=== PATIENT | female | born 1995 | race Caucasian/White ===

== ENCOUNTER 2022-01-31 08:15 | Inpatient (IN) | payer BC, SELFPAY ==
[2022-01-31] VITALS (44 sets, daily range): BP systolic 98–131; BP diastolic 55–87; PULSE 82–190; TEMP 36–36.6; O2SAT 81–100; BMI 29.9
[2022-01-31] MEDS: Lactated Ringers 1,000 ML 50 ML IV (09:00)
[2022-01-31] MEDS: 0.9% Normal Saline Single 100 ML IV.SOLN. INTRA-UTER (09:25)
[2022-01-31 09:45] LABS: Absolute Lymphocyte Count 1.22 X10^3/uL (0.83-4.51); Absolute Neutrophil Count 6.8 X10^3/uL (2.0-7.7); Basophil# 0.03 X10^3/uL; Basophil% 0.3 % (0-1); Eosinophil# 0.05 X10^3/uL; Eosinophils% 0.6 % (0-5); Hematocrit 39.3 % (37-47); Hemoglobin 13.7 g/dL (12.0-15.0); Lymphocyte # 1.22 X10^3/ul (0.83-4.51); Lymphocyte % 13.8 % (19-41); Mean Corp Hgb Conc 34.9 g/dL (32-36); Mean Corpuscular Hgb 29.7 pg (27.0-32.0); Mean Corpuscular Volume 85.1 fL (81-99); Mean Platelet Vol. 12.3 fl (6.2-12.0); Monocyte# 0.68 X10^3/uL; Monocyte% 7.7 % (0-10); Mucous, Urine 0 SEEN /hpf (<or=2+); NRBC Flagged by Analyzer 0 % (0-5); Neutrophil # 6.77 X10^3/uL (2.7-7.7); Neutrophil % 76.9 % (47-70); Platelet Count 141 K/mm3 (150-450); RBC Distribution Width CV 13.6 % (11.6-14.6); RBC Distribution Width SD 42.6 fl (35.1-43.9); Red Blood Cells-Urine 0 SEEN /hpf (0-5); Red Blood Count 4.62 M/mm3 (4.2-5.4); White Blood Cells 0 SEEN /hpf (0-5); White Blood Count 8.8 K/mm3 (4.4-11.0)
[2022-01-31 09:47] LABS: Color, Urine Yellow (Yellow); Glucose, Dipstick Normal (Normal); Ketone-Dipstick 5 mg/dl (Negative); Leukocyte Esterase-Dipstick Negative /ul (Negative); Nitrite-Dipstick Negative (Negative); Occult Blood-Urine Negative /ul (Negative); Protein-Dipstick Negative (Negative); Urine Bilirubin Dipstick Negative (Negative); Urine Clarity Sl. Cloudy (Clear); Urine Urobilinogen Normal (Normal); Urine pH 6.5 (5.0 - 8.0)
[2022-01-31] MEDS: Oxytocin 30 units/NS 500 ml 30 UNITS/500 ML IV.SOLN IV (09:52)
[2022-01-31 09:54] LABS: Bacteria 1+ /hpf (None Seen); Squamous Epithelial Cells - UA 0-5 SEEN /hpf (5-10)
[2022-01-31 09:58] LABS: Amphetamine Urine VISTA NEGATIVE (<1000 ng/mL); Barbiturate Urine VISTA NEGATIVE (< 200 ng/mL); Benzodiazepine Urine VISTA NEGATIVE (< 200 ng/mL); Cocaine Urine VISTA NEGATIVE (< 300 ng/mL); Ecstacy Urine VISTA NEGATIVE (< 500 ng/mL); Methadone Urine VISTA NEGATIVE (< 300 ng/mL); PCP Urine VISTA NEGATIVE (< 25 ng/mL); THC Urine VISTA NEGATIVE (< 50 ng/mL); Vista UDS pH Range 6
--- NOTE | 2022-01-31 11:22 | NURSING ---
Patient is a transfer of care from relay shop tester, Angelita Ordonez. Patient had been seen at [facility], [facility]. in [place] until 20 weeks. Faxed the office to obtain bloodwork for patient's records.
[2022-01-31 11:51] LABS: Group B Strep DNA By PCR Negative (Negative); Internal Control PASS; Probe Check PASS; Specimen Processing Control PASS
[2022-01-31] MEDS: Lactated Ringers 500 ML 999 ML IV ×3 (18:48→22:50)
[2022-01-31] MEDS: fentaNYL-bupivacaine (epidural) 100 ML BAG EPIDURAL (20:05)
[2022-01-31] MEDS: Lactated Ringers 1,000 ML 200 ML IV (21:18)
--- NOTE | 2022-01-31 21:23 | PCM.HP.OB ---
HPI - General General Date of Admission: 01/31/22 HPI Narrative MANDY HUMPHRIES, is a 26 F who presents For induction of labor secondary to postdates. She has been receiving care by patrol community service officer Angelita Ordonez and has had no complications except now she is 41 weeks and 3 days with no ongoing active labor Maternal Data Information DAISHA Calculator Estimated Delivery Date Method Current WG Current Estimate 01/21/22 Manual 41w 3d PFSH PFSH Medical History (Updated 01/31/22 @ 21:[address] Marilyn Louie MD) Anxiety Depression Medical History no medical history Home Medications Prenatabs FA 1 tab PO/SL DAILY 01/31/22 [History Last Taken 01/29/22] magnesium 1 tab PO/SL DAILY 01/31/22 [History Last Taken 01/29/22] Allergy/AdvReac Type Severity Reaction Status Date / Time No Known Allergies Allergy Verified 01/31/22 08:50 Family History no significant family his Surgical History (Updated 01/31/22 @ 09:47 by Gracia Jeffries) [place] teeth extracted Social History Smoking Status: Never smoker History Elective abortions Hx Para 0 Spontaneous abortions Hx # Term Pregnancies Ectopic pregnancies Hx # Pregnancies Multiple births # of living children NST FHR Rate Baby A Baseline: 130 Variability:: Moderate Accelerations:: 15 x 15 Decelerations:: None NST Reactive:: Yes FHR Category:: Category I Uterine Activity:: irregular ROS Constitutional Constitutional: Reports systems reviewed and no addt'l complaints, except as documented Eyes Eyes: Denies change in vision ENT HEENT: Reports systems reviewed and no addt'l complaints, except as documented; Denies headache(s) Cardiovascular Cardiovascular: Reports systems reviewed and no addt'l complaints, except as documented; Denies chest pain or dyspnea Respiratory/Chest Respiratory/Chest: Reports systems reviewed and no addt'l complaints, except as documented Gastrointestinal Gastrointestinal: Reports systems reviewed and no addt'l complaints, except as documented; Denies abdominal pain Genitourinary Genitourinary: Reports systems reviewed and no addt'l complaints, except as documented, contractions Details: present (irregular) and movement Details: present; Denies dysuria or genital lesions Musculoskeletal Musculoskeletal: Reports systems reviewed and no addt'l complaints, except as documented Neurologic Neurologic: Reports systems reviewed and no addt'l complaints, except as documented Endocrine Endocrinology: Reports systems reviewed and no addt'l complaints, except as documented Vital Signs Vital Signs Vital Signs: 01/31/22 08:36 01/31/22 09:59 01/31/22 10:00 Temperature 97.3 F L 97.9 F Temperature Source Temporal Temporal Pulse Rate 101 H 100 98 Blood Pressure 124/82 H 131/82 H BP Systolic 124 131 BP Diastolic 82 82 Pulse Ox 97 01/31/22 11:13 01/31/22 11:14 01/31/22 11:55 Temperature 97.2 F L 96.9 F L Temperature Source Temporal Temporal Pulse Rate 96 96 Blood Pressure 123/72 H 121/77 H BP Systolic 123 121 BP Diastolic 72 77 Pulse Ox 97 98 100 01/31/22 13:56 01/31/22 14:56 01/31/22 14:57 Temperature 96.8 F L Temperature Source Temporal Pulse Rate 94 94 Blood Pressure 113/67 118/75 BP Systolic 113 118 BP Diastolic 67 75 Pulse Ox 100 99 01/31/22 14:58 01/31/22 16:04 01/31/22 16:05 Temperature 97.6 F L Temperature Source Temporal Pulse Rate 106 H 90 Blood Pressure 117/76 BP Systolic 117 BP Diastolic 76 Pulse Ox 97 01/31/22 17:45 01/31/22 18:58 01/31/22 19:18 Temperature 97.2 F L Temperature Source Temporal Pulse Rate 86 91 97 Blood Pressure 123/87 H 124/75 H BP Systolic 123 124 BP Diastolic 87 75 Pulse Ox 98 95 98 01/31/22 19:29 01/31/22 19:30 01/31/22 19:35 Temperature Temperature Source Pulse Rate 93 91 90 Blood Pressure 110/61 BP Systolic 110 BP Diastolic 61 Pulse Ox 97 98 01/31/22 19:40 01/31/22 19:45 01/31/22 19:47 Temperature Temperature Source Pulse Rate 97 97 92 Blood Pressure BP Systolic BP Diastolic Pulse Ox 97 98 93 01/31/22 19:50 01/31/22 19:55 01/31/22 19:56 Temperature Temperature Source Pulse Rate 107 H 96 93 Blood Pressure 129/73 H 122/75 H BP Systolic 129 122 BP Diastolic 73 75 Pulse Ox 99 99 01/31/22 20:01 01/31/22 20:04 01/31/22 20:06 Temperature Temperature Source Pulse Rate 96 96 94 Blood Pressure 116/66 116/68 BP Systolic 116 116 BP Diastolic 66 68 Pulse Ox 95 01/31/22 20:09 01/31/22 20:11 01/31/22 20:14 Temperature Temperature Source Pulse Rate 90 90 90 Blood Pressure 118/62 BP Systolic 118 BP Diastolic 62 Pulse Ox 96 98 01/31/22 20:16 01/31/22 20:19 01/31/22 20:22 Temperature Temperature Source Pulse Rate 87 89 86 Blood Pressure 119/70 125/65 H BP Systolic 119 125 BP Diastolic 70 65 Pulse Ox 98 01/31/22 20:24 01/31/22 20:25 01/31/22 20:29 Temperature Temperature Source Pulse Rate 85 85 Blood Pressure 120/64 BP Systolic 120 BP Diastolic 64 Pulse Ox 97 96 01/31/22 20:31 01/31/22 20:44 01/31/22 20:52 Temperature Temperature Source Pulse Rate 88 82 96 Blood Pressure 113/65 111/72 BP Systolic 113 111 BP Diastolic 65 72 Pulse Ox 100 01/31/22 20:54 01/31/22 20:57 01/31/22 21:04 Temperature Temperature Source Pulse Rate 104 H 91 95 Blood Pressure 110/71 111/65 BP Systolic 110 111 BP Diastolic 71 65 Pulse Ox 100 Weight Weight: 202 lb 6 oz Body Mass Index (BMI) 29.9 Physical Exam Const alert, oriented x3, no apparent distress and healthy appearing HEENT normocephalic and moist oral mucous membranes Head and Scalp: atraumatic Neck full ROM, no lymphadenopathy, supple and thyroid normal General: trachea midline Lymph Lymphatic: no lymphadenopathy noted Chest inspection of chest normal Resp normal respiratory effort Cardio regular rate GI normal to inspection, nondistended, normoactive bowel sounds, soft to palpation and non-tender Inspection: gravid external exam normal Manual OB Exam: estimated gestational size appropriate, presentation cephalic, dilated, effaced and station Extremity normal to inspection General Extremity: Negative for edema Skin no rashes or lesions noted Neuro no focal motor deficits and deep tendon reflexes 2+ bilaterally Motor Exam: strength 5/5 throughout and clonus absent Psych mental status grossly normal Labs Labs Labs: Blood Type O POSITIVE Antibody Screen NEGATIVE Hct 39.3 % (37-47) Hgb 13.7 g/dL (12.0-15.0) Group B Strep DNA Negative (Negative) Assessment & Plan (1) Encounter for induction of labor: (2) Post-term , 40-42 weeks of gestation: PLAN: Pitocin and [place] bulb induction of labor, epidural if desired. AROM when able.
--- NOTE | 2022-01-31 21:37 | PN_ITS ---
Progress Note Status post epidural, patient comfortable. Direct OP and with gentle manipulation converted to MATTHEW. Tracing now heart tones 130 minimal to mo derate variability category 2 tracing but overall reassuring early decelerations. Pitocin initially turned off for prolonged deceleration but will restart Pitocin per protocol when appropriate
[2022-02-01] VITALS (24 sets, daily range): BP systolic 106–138; BP diastolic 56–87; PULSE 84–111; RESP 16; TEMP 36.1–36.9; O2SAT 98–99
--- NOTE | 2022-02-01 01:03 | OP.PCM_ITS ---
Assessment & Plan (1) Vaginal delivery: COMMENT: 41 iol postdates fracisco morrison patient SM girl (2) Post-term , 40-42 weeks of gestation: Maternal Data Information DAISHA Calculator Estimated Delivery Date Method Current WG Current Estimate 01/21/22 Manual 41w 4d Vaginal Delivery Operative Information Date of Procedure: 02/01/22 Pre-Operative Diagnosis: IOL Post-Operative Diagnosis: same Surgery / Procedure Performed: Spontaneous Vaginal Delivery Type of Anesthesia: Epidural Special Medications: none Estimated Blood Loss: 100 Fluids Replaced: crystalloid Findings Description of Procedure: Patient began pushing and delivered the head in the MATTHEW presentation. The head was delivered atraumatically . The anterior and posterior shoulders delivered without complication followed by the rest of the infant and the was placed on the maternal abdomen. Delayed cord clamping was employed for approximately 60 seconds. Cord was clamped and cut and gentle traction was applied to the cord and the placenta delivered spontaneously immediately following it was noted to be intact with three-vessel cord. The perineum and vagina were inspected and noted to have no laceration. EBL was 100 cc. Patient and tolerated delivery well. Presentation: MATTHEW Amniotic Membrane Rupture Type: Artificial Amniotic Fluid Description: Clear Placental Delivery Description: Spontaneous Placenta Disposition: [facility] Cord Vessel Description: 3 Vessels Cord Entanglement: None Delayed Cord Clamping: Yes Post Vaginal Delivery Medications Given After Delivery: IV Pitocin Episiotomy Description: None Laceration: None Complication Complications: None Procedures Urinary/Genital [id number]: [id number] Vaginal Delivery+ Care([facility])
--- NOTE | 2022-02-01 01:04 | PCM.DC ---
Discharge Instructions Diet Discharge Diet: No restrictions Activity Discharge Activity: Return to Normal Activity, May Not Drive (while taking narcotic pain medications.) and May Shower May resume sexual activity in: 4-6 weeks Dressing / Incision Call your doctor if your incision/area has: Continuous Slow Oozing, Sudden Increased Bleeding, Increased Pain/ Swelling, Increased Redness and Foul Smelling Discharge Follow Up Care Please Follow Up With: Marilyn Louie MD When: Call [phone] to make an appointment with your doctor in 6 weeks. If you had elevated blood pressure or 4th degree laceration, you will need to be seen in 2 weeks. Test Results: Test results from this visit will be discussed in further detail at your follow-up appointment, if applicable. Discharge Plan Admission Admit Date/Time: 01/31/22 08:15 Attending Provider: Marilyn Louie Primary Care Provider: Care ,Luciana Primary Discharge Orders/Prescriptions Prescriptions: No Action Prenatabs FA 1 tab PO/SL DAILY RF: 0 magnesium 1 tab PO/SL DAILY RF: 0 Referrals / Follow Up: Care Physician,Luciana Primary [Primary Care Provider] - Disposition Disposition (needs filled in before D/C Order can be placed): Home, Self Care
[2022-02-01] MEDS: Oxytocin 30 units/NS 500 ml 30 UNITS/500 ML IV.SOLN 334 UNITS IV (02:15)
[2022-02-01] MEDS: 0.9% Saline Lock 10 ML Syringe IV (05:15)
[2022-02-01] MEDS: Naproxen 500 MG Tablet PO (06:47)
--- NOTE | 2022-02-01 11:38 | NURSING ---
Dr. Chou notified of BS of 97. States that we can stop BS at this time unless indicated.
[2022-02-01] MEDS: Acetaminophen 500 MG Tablet 1000 MG PO (19:58)
[2022-02-02 03:23] VITALS: BP 112/68; PULSE 86
[2022-02-02 03:25] VITALS: BP 112/68; PULSE 86; RESP 16; TEMP 37.1
--- NOTE | 2022-02-02 07:29 | PCM.PN.OB ---
Subjective Subjective Patient doing well without complaints. Tolerating PO. Ambulating and voiding without difficulty. feeding well. Denies chest pain, shortness of breath, calf pain/swelling, fevers, chills, lightheadedness. Objective Data Objective Data Vital Signs: Vital Signs Temp Pulse Resp BP Pulse Ox 98.8 F 86 16 112/68 98 02/02/22 03:25 02/02/22 03:25 02/02/22 03:25 02/02/22 03:25 02/01/22 01:09 Oxygen Delivery Method Room Air Weight: 202 lb 6 oz Body Mass Index (BMI) 29.9 Intake & Output: Intake and Output for Last 24 Hours 01/31/22 02/01/22 02/03/22 23:59 23:59 00:59 Intake Total 3278.90 / 3278.90 1193.33 / 1193.33 1000 / 1000 Output Total 1400 / 1400 1000 / 1000 Balance 1878.90 / 1878.90 193.33 / 193.33 1000 / 1000 Lab / Micro Data Result Diagrams: 01/31/22 09:30 Micro: Microbiology 01/31/22 09:30 Nasal Secretion SARS-CoV-2 Antigen (Rapid) - Final ROS Constitutional Constitutional: Reports systems reviewed and no addt'l complaints, except as documented Cardiovascular Cardiovascular: Reports systems reviewed and no addt'l complaints, except as documented Respiratory/Chest Respiratory/Chest: Reports systems reviewed and no addt'l complaints, except as documented Gastrointestinal Gastrointestinal: Reports systems reviewed and no addt'l complaints, except as documented Physical Exam Const alert, oriented x3 and no apparent distress HEENT Head and Scalp: atraumatic Resp normal respiratory effort GI soft to palpation and non-tender Bimanual Exam - Vag & Uterus: uterus non-tender Uterus Palpation: uterus fundus firm (below Umbilicus) Assessment & Plan (1) Vaginal delivery: COMMENT: 41 iol postdates fracisco morrison patient SM girl (2) Post-term , 40-42 weeks of gestation: PLAN: s/p PPD # 1 1. routine post delivery care 2. breast feeding- support given 3. rh positive 4. rubella immune
[2022-02-02 08:45] VITALS: BP 108/73; PULSE 81; RESP 16; TEMP 36.8
[2022-02-02 08:46] VITALS: BP 108/73; PULSE 81
[2022-02-02 12:39] VITALS: BP 118/75; PULSE 90; RESP 15; TEMP 36.6
[2022-02-02 12:40] VITALS: BP 118/75; PULSE 90
--- NOTE | 2022-02-06 18:16 | NURSING ---
doing well on follow up call, really liked juan jose enriquez was excellent and very comforting, and liked max yun
== END 2022-02-02 14:45 | disposition home or self-care (01) | DRG 807 ==
PROVIDERS: Admitting Provider Obstetrics & Gynecology; Referring Provider Obstetrics & Gynecology; Visit Provider Obstetrics & Gynecology
DX: O48.0 Post-term pregnancy (principal); Z37.0 Single live birth; O76 Abnormality in fetal heart rate and rhythm complicating labor and delivery; Z3A.41 41 weeks gestation of pregnancy
CPT/HCPCS: 59025; 59050; 76815; 80307; 81001; 85025; 86850; 86900; 86901; 87081; 87426; 87653; 99218; J7120; A4216; G0378

== ENCOUNTER → 2022-03-25 | Outpatient (CLI) | payer BC, SELFPAY ==
[2022-03-31 09:50] LABS: HPV Reflexed? NOT INDICATED
== END | disposition home or self-care (01) ==
LOC: LABSPEC 10:05
PROVIDERS: Visit Provider Obstetrics & Gynecology
DX: Z12.4 Encounter for screening for malignant neoplasm of cervix (principal)
CPT/HCPCS: 88175; G0145